=== PATIENT | female | born 2000 | race Caucasian/White ===

== ENCOUNTER 2024-03-10 17:13 | Outpatient (CLI) | payer OTHER, SELFPAY | END 2024-03-10 17:14 | disposition home or self-care (01) | LOC: ANHLAB 17:14 | PROVIDERS: Visit Provider Student in an Organized Health Care Education/Training Program | DX: Z20.2 Contact with and (suspected) exposure to infections with a predominantly sexual mode of transmission (principal) | CPT/HCPCS: 36415; 86695; 86696 ==

== ENCOUNTER 2024-10-05 09:52 | Outpatient (CLI) | payer BC, SELFPAY ==
--- OUTSIDE RECORDS SUMMARY | 2024-10-05 10:45 | XMS_ITS | Encounter Summary ---
Author Organization [facility] Address [address] [place] [address] Care Team Providers Care Foreign Languages Professor Name Role Phone Felisa Lugo MD Primary Care Provider [phone] Reason for Visit * Reason Onset Date Comments Returned Call 05/28/2018 Encounter Details Date Type Department Care Team (Late st Contact Info) Description 05/28/2018 Telephone [facility] [address] [place] [address] Chantelle Larose MD [address] [place] [address] Returned Call Social History Tobacco Use Types Packs/Day Years Used Date Smoking Tobacco: Never Smokeless Tobacco: Never Alcohol Use Standard Drinks/Week Comments Yes 0 (1 standard drink = 0.6 oz pur e alcohol) prior to Comments No Sex and Gender Information Value Date Recorded Sex Assigned at Not on file Legal Sex Female 10:07 AM CDT Gender Identity Not on file Sexual Orientation Not on file documented as of this encounter Functional Status * Is person deaf or have serious hearing difficulty? Answer Date of Assessment Author No 03/31/2018 12:37 PM NAIFT Shakir Linder RN * Is person blind or have serious difficulty seeing? Answer Date of Assessment Author No 03/31/2018 12:37 PM NAIFT Shakir Linder RN * Does person have serious difficulty walking/climbing stairs? Answer Date of Assessment Author No 03/31/2018 12:37 PM CDT Shakir Linder RN * Does person have difficulty dressing/bathing? Answer Date of Assessment Author No 03/31/2018 12:37 PM CDT Shakir Linder RN * Does person have difficulty doing errands alone? Answer Date of Assessment Author No 03/31/2018 12:37 PM NAIFT Shakir Linder RN documented as of this encounter Mental Status * Does person have difficulty concentrating/remembering/making decisions? Answer Entry Date Author No 03/31/2018 12:37 PM CDT Shakir Linder RN documented in this encounter Miscellaneous Notes * Telephone Encounter - Jaclyn Concepcion - 05/28/2018 1:07 PM CST Rtc to pt, scheduled for Mirena insertion on 05/30/[address] Larose. HOUSE LABORER * Telephone Encounter - Elham Morillo - 05/28/2018 12:07 PM CST Pt was returning a call back from Jaclyn. Pt number [phone] HOUSE LABORER documented in this encounter Plan of Treatment Not on file documented as of this encounter Visit Diagnoses Not on filedocumented in this encounter Care Teams Foreign Languages Professor Relationship Specialty Start Date End Date Felisa Lugo MD PCP - General Pediatrics 01/02/18 documented as of this encounter
--- OUTSIDE RECORDS SUMMARY | 2024-10-05 10:45 | XMS_ITS | Clinical Summary ---
Author Organization [facility] Address [facility] [place] [address] Care Team Providers Care Buyer Grain Name Role Phone None, Provider MD Primary Care Provider Unavaila ble Allergies No known active allergies Social History Tobacco Use Types Packs/Day Years Used Date Smoking Tobacco: Never Passive Smoke Exposure: Never Smokeless Tobacco: Never Tobacco Cessation:Counseling Given: Not Answered Alcohol Use Standard Drinks/Week Comments Yes 0 (1 standard drink = 0.6 oz pur e alcohol) social Comments No Sex and Gender Information Value Date Recorded Sex Assigned at Not on file Legal Sex Female 8:35 AM SPRINKLER TENDER Gender Identity Not on file Sexual Orientation Not on file Last Filed Vital Signs Vital Sign Reading Time Taken Comments Blood Pressure 107/73 05/20/2023 8:41 AM SPRINKLER TENDER Pulse 95 05/20/2023 8:41 AM SPRINKLER TENDER Temperature 37.4 C (99.3 F) 05/20/2023 8:41 AM SPRINKLER TENDER Respiratory Rate 16 05/20/2023 8:41 AM SPRINKLER TENDER Oxygen Saturation 100% 05/20/2023 8:41 AM SPRINKLER TENDER Inhaled Oxygen Concentration - - Weight 56.7 kg (125 lb) 05/20/2023 8:41 AM SPRINKLER TENDER Height 160 cm (5' 3 ) 05/20/2023 8:41 AM SPRINKLER TENDER Body Mass Index 22.14 05/20/2023 8:41 AM SPRINKLER TENDER Plan of Treatment Health Maintenance Due Date Last Done Comments Cervical Cancer Screening Pap Smear (Age 21 to 29) Every 3 Years 1999 Cervical Cancer Screening 1999 Annual Physical 2002 HPV Vaccines (3 - 2-dose series) 07/08/2013 03/09/2013, 01/05/2013 Hepatitis C 2017 Hepatitis B Vaccines (1 of 3 - 19+ 3-dose series) 2018 COVID-19 Vaccine (1 - 2024-25 season) 2024 DTaP, Tdap and Td Vaccines (5 - Td or Tdap) 01/28/2028 01/27/2018, 02/06/2010, 10/01/2007, Additional history exists Meningococcal Vaccine Completed 2016 , 02/06/2010, 11/19/2008 Meningococcal B Vaccine Aged Out No l onger eligible based on patient's age to complete this topic Pneumococcal Vaccine: Pediatrics (0 to 5 Years) and At-Risk Patients (6 to 49 Years) Aged Out No longer eligible based on patient's age to complete this topic RSV Immunizations Under 20 Months Aged Out No longer eligible based on patient's age to complete this topic Insurance [employer] [address] [address] [address] Care Teams Buyer Grain Relationship Specialty Start Date End Date None, Provider, PCP - General UNKNOWN PHYSICIAN SPECIALTY 05/20/23
--- OUTSIDE RECORDS SUMMARY | 2024-10-05 10:45 | XMS_ITS | Clinical Summary ---
Author Organization [facility] Address [address] [place] [address] Care Team Providers Care Office Professionals Name Role Phone Felisa Lugo MD Primary Care Provider Source Comments [facility],non-owned Affiliates and Associated Physician Practices is amultiple site organization consisting of ambulatory clinics and hospital sitesin [place], [place], [place] and [place]. This disclosure is being madepursuant to the Care Everywhere program and may not contain all information available regarding this patient. Last updated 18.[facility] Allergies No known active allergies Medications * Be aware that medications may not be up to date on this document. Alwaysverify current medications with the patient. acetaminophen (TYLENOL) 500 MG tablet Take 500 mg by mouth every 4 hours as needed for Headache Maximum allowable Acetaminophen amount = 4 Grams (4000 mg) / 24 hours. Active levonorgestrel (MIRENA, 52 MG,) 20 MCG/24HR IUD 1 device by Intrauterine route as directed Active FLUoxetine (PROZAC) 20 MG capsuleIndicati ons:Depression, unspecified depression type Take 1 capsule by mouth once daily 30 capsule 3 9 Active Active Problems Problem Noted Date Diagnosed Date Adjustment disorder with mixed emotional feature s 04/01/2018 Polyhydramnios, antepartum complication 03/20/20 18 Supervision of high risk in third trim delfina 01/01/2018 Overview (02/13/2018): PNL wnl Dating - 11 wk scan Anatomy: ventriculomegaly noted Genetics: FISH wnl 28 wk labs - wnl, s/p Tdap Needs GBS at 36 weeks Delivery planning: will base on FCC recommendations/BPD and HC around time of delivery, may need c/s if severe hydrocephalus growth evaluation at 38 weeks Neurosurg does not recommend early delivery Depression affecting 01/01/2018 Overview (01/27/2018): Prozac 10 mg - started @ primary OB Depression screen - initial 12/12/17 12/12/2017 Overview (03/25/2018): 12/12/2017 Brigette Mauro was screened for depression using the Sterling Depression Scale (EPDS) at her [facility] initial evaluation on 12/12/2017. Her initial score at baseline was 11. Based off of her score of 11, Brigette does not warrant follow up call . Patient will continue to be screened throughout , at intervals no closer than two weeks, for continued surveillance and early identification of depression until delivery. Patient reports mental health history. Diagnoses include anxiety and depression. Based off her hx, Brigette was provided with a packet for further assistance including information on both the MOMs line and MOMs support group, 24-hr crisis services, and additional resources for further guidance and support. 01/02/18 EPDS follow up score- 9 02/03/18 EPDS follow up score- 8 03/13/18 EPDS follow up score- 14 03/13/18 SW aware of increased score and resources were given to patient- she is aware that SW will also follow up with her one time before delivery. 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 PENITENTIARY PATIENT--PLEASE CALL [phone] IF TRIAGED OR ADMITTED Care Provider: Hallie (OB) w/ DAVID to [facility] 01/01 [facility] consultants involved: Nurse coordinator- Hal, [facility]- Desi, hr shared services consultant- Corry, [facility] [place] 01/02/18, Neonatology- [facility] 02/03 Diagnosis: Severe Bilateral Ventriculomegaly (4.0 on right, 4.3cm on left) follow up (Neurosurgery - [facility] 01/02) : It was explained to mother that following the delivery baby will be stabilized and transferred to [facility] for evaluation by the neurosurgical service. Silk Brusher: Planned surveillance: Initial PENITENTIARY evaluation 12/12 for ultrasound and amnio, and consults. Delivery location, mode, and GA: [facility], 10.02.08 Autopsy indicated: Genetics note: Amniocentesis 12/12- CLASSIFICATION OFFICER normal male, toxo and CMV negative Pump House Operator Concerns: 12/12/17- Patient with mental health history- depression and anxiety- does take Prozac Care plan based on evaluation and is subject to change based on assessment. See Images or Cardiac under Chart Review for US/ ECHO/ MRI reports. complicated by fet al cerebral ventriculomegaly 03/24/2018 33 weeks gestation of 02/27/2018 Immunizations Immunization Administration Dates Next Due TDAP (7yrs+) 01/27/2018 Family History Medical History Relation Name Comments Hypertension Father CVA Maternal Grandmother Hypertension Maternal Grandmother Relation Name Status Comments Father Maternal Grandmother Social History Tobacco Use Types Packs/Day Years [...] Sign Reading Time Taken Comments Blood Pressure 112/78 04/10/2019 2:16 PM CDT Pulse 81 05/22/2018 11:22 AM FISHER SEAL Temperature 36.8 C (98.2 F) 04/03/2018 7:50 AM CDT Respiratory Rate 16 05/22/2018 11:22 AM FISHER SEAL Oxygen Saturation 99% 04/03/2018 7:50 AM CDT Inhaled Oxygen Concentration - - Weight 58.1 kg (128 lb) 04/10/2019 2:16 PM CDT Height 160 cm (5' 3 ) 04/10/2019 2:16 PM CDT Body Mass Index 22.67 04/10/2019 2:16 PM CDT Plan of Treatment Health Maintenance Due Date Last Done Comments PAP SMEAR 1999 HPV VACCINE (1 - 3-dose series) 2014 HEPATITIS C SCREENING 01/28/2017 HEPATITIS B VACCINE (1 of 3 - 19+ 3-dose series) 2018 CHLAMYDIA/GONORRHEA SCREENING 01/01/2019 01/01/2018 COVID-19 VACCINE (1 - 2023-2 5 season) 2024 DEPRESSION SCREENING 06/24/2024 INFLUENZA VACCINE (Season Ended) 2025 DTAP/TDAP/TD VACCINES (2 - T d or Tdap) 01/28/2028 01/27/2018 ZOSTER VACCINE (1 of 2) 2049 HIV SCREENING Completed 01/01/2018 HIB VACCINE Aged Out No longer eligi ble based on patient's age to complete this topic MENINGOCOCCAL (Group B) VACC INE SHARED DECISION-MAKING Aged Out No longer eligibl e based on patient's age to complete this topic MENINGOCOCCAL GROUPS A/C/Y/W VACCINE Aged Out No longer eligible b ased on patient's age to complete this topic PNEUMOCOCCAL VACCINE Aged Out No long er eligible based on patient's age to complete this topic Procedures Procedure Name Priority Date/Time Associated Diagnosis Comments HIV-1 HIV-2 ANTIBODY + HIV P24 AG PANEL Routine 01/01/2018 2:35 PM CDT complicated by cerebral ventriculomegaly, single gestation CHLAMYDIA + GC AMPLIFIED PROBE Routine 01/01/2018 2:23 PM CDT complicated by cerebral ventriculomegaly, single gestation from Last 3 Months or Most Recently Relevant to Health Maintenance Results * HIV-1 HIV-2 ANTIBODY + HIV P24 AG PANEL (01/01/2018 2:35 PM CDT) Pathologist [facility] HIV1/2 Ab + P24 Ag Non Reactive Non Reactive 01/01/2018 11:14 PM CDT [facility] Blood BLOOD SPECIMEN / Unknown Venipuncture / Unknown 01/01/2018 2:35 PM CDT 01/01/2018 2:44 PM CDT Narrative [facility] - 01/01/2018 11:14 PM CDT No Laboratory evidence of HIV infection. Devora Francois MD LAB - CHEMISTRY ORDER BRIDGER Final Result [facility] [address] [place] [address] * CHLAMYDIA + GC AMPLIFIED PROBE (01/01/2018 2:23 PM CDT) [facility] Chlamydia Amplified Probe Negative Negative 01/02/2018 10:24 AM CDT [facility] GC Amplified Probe Negative Negative 01/02/2018 10:24 AM CDT [facility] Microbiology URINE / Unknown Collection / Unknown 01/01/2018 2:23 PM CDT 01/01/2018 3:01 PM CDT Narrative [facility] - 01/02/2018 10:24 AM CDT Results based on detection/no detection of ribosomal RNA by amplified method. Devora Francois MD LAB - MICROBIOLOGY OR DERABLES Final Result [facility] [address] [place] [address], [facility] [phone] from Last 3 Months or Most Recently Relevant to Health Maintenance Insurance [facility] Advance Directives * Full Code (Latest Code Status on File) Date Activated Date Inactivated Comments 03/31/2018 12:36 PM 04/03/2018 1:14 PM Care Teams Office Professionals Relationship Specialty Start Date End Date Felisa Lugo MD PCP - General Pediatrics 01/02/18
[2024-10-05 18:55] LABS: Basophils Percent Auto 0.6 % (0.2-1.2); Eosinophils Absolute Auto 0.4 K/mm3 (0-0.3); Eosinophils Percent Auto 8.5 % (0-4.4); Hematocrit 41.2 % (37.0-47.0); Hemoglobin 13.2 g/dL (12.0-15.0); Immature Granulocyte Absolute 0.01 K/mm3 (0.00-0.031); Immature Granulocyte Percent A 0.2 % (0-0.5); Lymphocytes Absolute Auto 1.82 K/mm3 (0.9-3.2); Mean Corpuscular Hemoglobin 29.6 pg (26-34); Mean Corpuscular Volume 92.4 fl (80-100); Mean Platelet Volume 8.8 fl (7.4-10.4); Monocytes Absolute Auto 0.5 K/mm3 (0.1-0.6); Monocytes Percent Auto 9.6 % (2.6-8.5); Neutrophils Absolute Auto 2.2 K/mm3 (1.3-6.7); Neutrophils Percent Auto 44.1 % (45.5-73.1); Platelet Count Result 327 k/mm3 (150-375); Red Blood Count 4.46 M/mm3 (4.2-5.4); Red Cell Distribution Width 12.6 % (11.5-14.5); White Blood Count 4.9 K/mm3 (4.5-10.0)
[2024-10-05 20:30] LABS: Alanine Aminotransferase 59 U/L (6-35); Albumin Level 4.5 g/dL (3.5-5.1); Alkaline Phosphatase 54 U/L (38-126); Anion Gap 8 mmol/L (4-12); Aspartate Amino Transferase 74 U/L (14-36); Bilirubin,Total 0.4 mg/dL (0.2-1.3); Blood Urea Nitrogen 9 mg/dL (7-17); Calcium 9.1 mg/dL (8.4-10.2); Carbon Dioxide 25 mmol/L (22-30); Chloride 107 mmol/L (98-107); Cholesterol 150 mg/dL (0-200); Estimated Glomerular Filt Rate > 60; Glucose 92 mg/dL (65-110); HDL Direct 52 mg/dL; Potassium 4.3 mmol/L (3.4-5.0); Sodium 140 mmol/L (137-145); Triglycerides 55 mg/dL (<150)
[2024-10-05 20:42] LABS: LDL Cholesterol Direct 76 mg/dL
[2024-10-05 21:36] LABS: Hemoglobin A1C 4.8 % (<5.7)
[2024-10-08 15:19] LABS: Immunoglobulin A 210 mg/dL (47-310); TTG IGA AB <1.0 U/mL
== END 2024-10-05 09:53 | disposition home or self-care (01) ==
LOC: ANHGOSHLAB 09:53
PROVIDERS: PCP Nurse Practitioner Family; Visit Provider Nurse Practitioner Family
DX: R35.0 Frequency of micturition (principal); R51.9 Headache, unspecified; R10.9 Unspecified abdominal pain; G47.00 Insomnia, unspecified; F41.9 Anxiety disorder, unspecified; R73.01 Impaired fasting glucose; B37.31 Acute candidiasis of vulva and vagina
CPT/HCPCS: 36415; 80053; 80061; 82784; 83036; 83516; 84443; 85025; 87086

== ENCOUNTER 2024-10-27 11:19 | Outpatient (CLI) | payer BC, SELFPAY ==
--- NOTE | ~2024-10-27 | US_ITS ---
Pelvic ultrasound. Clinical History: Other noninflammatory disorder vagina Technique: Realtime transabdominal and transvaginal scanning of the pelvis was performed. Color flow Doppler and Doppler spectral analysis were performed. Findings: The uterus is anteverted. The endometrial stripe has a thickness of 5 mm. IUD in satisfact ory position. No focal mass is identified. The right ovary measures 2.9 x 2.1 x 1.9 cm. No significant right ovarian or adnexal mass is seen. The left ovary measures 1.4 x 1.0 x 1.8 cm. No significant left ovarian or adnexal mass is seen. There is no evidence of free fluid in the cul de sac. Impression: IUD in place. No other significant findings. Reviewed, dictated and finalized at [facility]. Impression: IUD in place. No other significant findings.
--- OUTSIDE RECORDS SUMMARY | 2024-10-27 12:12 | XMS_ITS | Clinical Summary ---
Author Organization [facility] Address [address] [facility] [place] [address] Care Team Providers Care Director Network Development Name Role Phone Felisa Lugo MD Primary Care Provider [phone] Source Comments [facility],non-owned Affiliates and Associated Physician Practices is amultiple site organization consisting of ambulatory clinics and hospital sitesin [place], [place], [place] and [place]. This disclosure is being madepursuant to the Care Everywhere program and may not contain all information available regarding this patient. Last updated 18.[facility] Allergies No known active allergies Medications * [...] Mauro was screened for depression using the [place] Depression Scale (EPDS) at her [facility] initial evaluation on 12/12/2017. 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 SKILL[facility] NURSING PATIENT--PLEASE CALL [phone] IF TRIAGED OR ADMITTED Care Provider: Hallie (OB) w/ DAVID to [facility] 01/01 [facility] consultants involved: Nurse coordinator- Hal, [employer]- Desi, information services manager- Corry, [facility] 01/02/18, Neonatology- [facility] 02/03 Diagnosis: Severe Bilateral Ventriculomegaly (4.0 on right, 4.3cm on left) follow up (Neurosurgery - [facility] 01/02) : It was explained to mother that following the delivery baby will be stabilized and transferred to [facility] for evaluation by the neurosurgical service. Agent Contract Clerk: Planned surveillance: Initial [facility] NURSING evaluation 12/12 for ultrasound and amnio, and consults. Delivery location, mode, and GA: [facility], 10.02.08 Autopsy indicated: Genetics note: Amniocentesis 12/12- MEAT COUNTER WORKER normal male, toxo and CMV negative Dog Behaviorist Concerns: 12/12/17- Patient with mental health history- [...] PM CDT Pulse 81 05/22/2018 11:22 AM STATISTICAL ASSISTANT Temperature 36.8 C (98.2 F) 04/03/2018 7:50 AM CDT Respiratory Rate 16 05/22/2018 11:22 AM STATISTICAL ASSISTANT Oxygen Saturation 99% 04/03/2018 7:50 AM CDT Inhaled Oxygen Concentration - - Weight 58.1 kg (128 lb) 04/10/2019 2:16 PM CDT Height 160 cm (5' 3 ) 04/10/2019 2:16 PM CDT Body Mass Index 22.67 04/10/2019 2:16 PM CDT Plan of Treatment Health Maintenance Due Date Last Done Comments HPV VACCINE (1 - 3-dose series) 2014 [...] AG PANEL (01/01/2018 2:35 PM CDT) Pathologist [facility] HIV1/2 Ab + P24 Ag Non Reactive Non Reactive 01/01/2018 11:14 PM CDT [facility] Blood BLOOD SPECIMEN / Unknown Venipuncture / Unknown 01/01/2018 2:35 PM CDT 01/01/2018 2:44 PM CDT Narrative [facility] - 01/01/2018 11:14 PM CDT No Laboratory evidence of HIV infection. Devora Francois MD LAB - CHEMISTRY ORDER BRIDGER Final Result [facility] [place] [address] * CHLAMYDIA + GC AMPLIFIED PROBE (01/01/2018 2:23 PM CDT) Pathologist [facility] Chlamydia Amplified Probe Negative Negative 01/02/2018 10:24 AM CDT [facility] GC Amplified Probe Negative Negative 01/02/2018 10:24 AM CDT [facility] Microbiology URINE / Unknown Collection / Unknown 01/01/2018 2:23 PM CDT 01/01/2018 3:01 PM CDT Narrative [facility] - 01/02/2018 10:24 AM CDT Results based on detection/no detection of ribosomal RNA by amplified method. Devora Francois MD LAB - MICROBIOLOGY OR DERABLES Final Result [facility] [address] [place] [address], [facility] [place] [phone] from Last 3 Months or Most Recently Relevant to Health Maintenance Insurance [facility] Advance Directives * Full Code (Latest Code Status on File) Date Activated Date Inactivated Comments 03/31/2018 12:36 PM 04/03/2018 1:14 PM Care Teams Director Network Development Relationship Specialty Start Date End Date Felisa Lugo MD PCP - General Pediatrics 01/02/18
--- OUTSIDE RECORDS SUMMARY | 2024-10-27 12:13 | XMS_ITS | Data Portability ---
Author Organization [facility], Main Office Address [address] [place] [address] Assessment No assessment recorded. Plan of Treatment Reminders Order Date Submit Date Provider Last Modified By Organization Details Last Modified Time Details Appointments None record ed. Lab None record ed. Referral None record ed. Procedures None record ed. Surgeries None record ed. Imaging None record ed. Medication Orders None record ed. Patient TargetsNo targets recorded. Patient InstructionsNo instructions recorded. Reason for Referral None Reported. Results Created Date Observation Date Name Description Value Unit Range Abnormal Flag Note LastModifiedBy Organization Detail LastModifiedTime 09/14/1909/15/2020 pap, LB + CT/NG , refle x HR HPV if ASC-U + refle x HPV (16+1 8) chlamydia, nuc. acid amp negati ve negati ve Not Available [facility] [address], [address], 09/16/2020 12:10:38 09/14/19 21 09/15/2020 pap, LB + CT/NG , refle x HR HPV if ASC-U + refle x HPV (16+1 8) gonococcus, nuc. acid amp negati ve negati ve Not Available [facility] [address] [place] [place], [address], 09/16/2020 12:10:38 09/14/19 21 09/15/2020 pap, LB + CT/NG , refle x HR HPV if ASC-U + refle x HPV (16+1 8) trich vag by STANLEY negati ve negati ve Not Available [facility] [address], [address], 09/16/2020 12:10:38 09/14/19 21 09/16/2020 pap, LB + CT/NG , refle x HR HPV if ASC-U + refle x HPV (16+1 8) diagnosis: allen mckinnon NEGAT LOVE FOR INTRA EPITH ELIAL LESIO N OR RONY SHERMAN . THIS SPECI MEN WAS RESCR EENED PART OF OUR QUALI TY CONTR OL PROGR AM. Not Available [facility] [address] [facility] [place], [address], 09/16/2020 12:10:38 09/14/19 21 09/16/2020 pap, LB + CT/NG , refle x HR HPV if ASC-U + refle x HPV (16+1 8) specimen adequacy: allen mckinnon Satis facto ry for evalu ation . Endoc ervic al and/o r squam ous metap lasti c cells (endo cervi shashi compo nent) are prese nt. Not Available [facility] [address] [facility] [place], [address], 09/16/2020 12:10:38 09/14/19 21 09/16/2020 pap, LB + CT/NG , refle x HR HPV if ASC-U + refle x HPV (16+1 8) clinician provided ICD10: allen mckinnon Z01.4 19 Z11.3 Not Available [facility] [address], [place], [address], 09/16/2020 12:10:38 09/14/19 21 09/16/2020 pap, LB + CT/NG , refle x HR HPV if ASC-U + refle x HPV (16+1 8) performed by: allen moreno, Cytot vicki newsome t (ASCP ) Not Available [facility] [address] [place], [address], 09/16/2020 12:10:38 09/14/19 21 09/16/2020 pap, LB + CT/NG , refle x HR HPV if ASC-U + refle x HPV (16+1 8) QC reviewed by: commen t Drema Bonar , Super visor y Cytot echno logis t (ASCP ) Not Available [facility] [address] [facility] [place], [address], 09/16/2020 12:10:38 09/14/19 21 09/16/2020 pap, LB + CT/NG , refle x HR HPV if ASC-U + refle x HPV (16+1 8) . . Not Available [facility] [address] [facility] [place], [address], 09/16/2020 12:10:38 09/14/19 21 09/16/2020 pap, LB + CT/NG , refle x HR HPV if ASC-U + refle x HPV (16+1 8) note: commen t The Pap smear is a scree denver test desig prosper to aid in the detec tion of freida ligna nt and malig nant condi tions of the uteri ne cervi x. It is not a diagn ostic proce dure and shoul d not be used as the sole means of detec ting cervi shashi cance r. Both false -posi tive and false -nega tive repor ts do occur . Not Available [facility] [address] [facility] [place], [address], 09/16/2020 12:10:38 09/14/19 21 09/16/2020 pap, LB + CT/NG , refle x HR HPV if ASC-U + refle x HPV (16+1 8) test methodology: commen t This liqui d based ThinP rep(R ) pap test was scree prosper with the use of an image guide d syste m. Not Available [facility] [address] [place], [address], 09/16/2020 12:10:38 09/14/19 21 09/16/2020 pap, LB + CT/NG , refle x HR HPV if ASC-U + refle x HPV (16+1 8) . commen t The HPV DNA refle x crite polo were not met with this speci men resul t there fore, no HPV testi ng was perfo rmed. Not Available [facility] [address], [place], [address], 09/16/2020 12:10:38 Result Notes None recorded. Problems Name Problem SNOMED Code Status Onset Date Resolution Date Notes Provider Name and Address Organization Details Recorded Time 70937609 Completed 201701/27/2018 Not Available [facility] 19:45:41 Problem Notes None recorded. Procedures Surgical History Date Name Laterality Status Provider Name and Address Organization Details Recorded Time 8 CREW CHIEF Procedure completed Not Available [facility] 2022 19:45:15 8 section completed Not Available [facility] 08/22/2022 19:45:15 ENT Surgery completed Not Available [facility] 08/22/2022 19:45:15 Imaging Results None recorded. Procedure Notes None recorded. Medical Equipment None Reported. Medications Name Sig Start Date Stop Date Status Note LastModified by Organization Details LastModified Time Mirena 21 mcg/24 hr (up to 8 years) 52 mg intrauterin e device active Not Available Not Available Not Available citalopram 40 mg tablet TK 1 T PO QD UTD 09/13 completed Not Available Not Available Not Available fluoxetine 10 mg tablet Take 1 tablet every day by oral route. 09/13 completed Not Available Not Available Not Available oxycodone-a cetaminophe n 5 mg-325 mg tablet TK 1 TO 2 TS PO Q 6 H PRN P 09/13 completed Not Available Not Available Not Available amoxicillin 875 mg tablet 09/13 completed Not Available Not Available Not Available citalopram 20 mg tablet TK 1 T PO QD UTD 09/13 completed Not Available Not Available Not Available DOK 100 mg capsule TK 1 C PO BID 09/13 completed Not Available Not Available Not Available fluoxetine 10 mg capsule TK 1 C PO QD 09/13 completed Not Available Not Available Not Available hydroxyzine HCl 25 mg tablet TK 1 T PO TID PRN 09/13 completed Not Available Not Available Not Available ibuprofen 600 mg tablet TK 1 T PO Q 6 H PRN P 09/13 completed Not Available Not Available Not Available hydroxyzine HCl 10 mg tablet TK 1 T PO TID PRN 09/13 completed Not Available Not Available Not Available fluoxetine 20 mg capsule TK 2 CS PO D 09/13 completed Not Available Not Available Not Available nitrofurant oin monohydrate /macrocryst als 100 mg capsule TK 1 C PO Q 12 H FOR 5 DAYS PRN 09/13 completed Not Available Not Available Not Available Fluzone Quad 2018-(PF) 60 mcg(15 mcgx4)/0.5 mL intramuscul ar syringe TO BE ADMINISTE RED BY Spring[employer] T FOR IMMUNIZAT ION active Not Available Not Available No t Available Vitals Date Recorded Body height Body temperature Systolic blood pressure Diastolic blood pressure Provider Name and Address Organization Details Last Updated DateTime 09/13/2020 160.02 cm 97.6 [degF] 116 mm[Hg] 62 mm[Hg] Not Available [facility] 19:45:18 Social History Question Answer Notes LastModified by [employer] Details LastModified Time Tobacco Smoking Status Never Smoker Not Available [facility] 08/22/2022 19:45:09 What Is Your Level Of Alcohol Consumption? None [id number] Information not available 08/22/2022 What Is Your Level Of Caffeine Consumption? Moderate [id number] Information not available 08/22/2022 In The 14 Days Before Symptom Onset, Have You Had Close Contact With A Laboratory-confir med COVID-19 While That Case Was Ill? No [id number] Information not available 08/22/2022 In The 14 Days Before Symptom Onset, Have You Had Close Contact With A Person Who Is Under Investigation For COVID-19 While That Person Was Ill? No [id number] Information not available 08/22/2022 Which Illicit Or Recreational Drugs Have You Used? None [id number] Information not available 08/22/2022 Do You Or Have You Ever Used E-cigarettes Or Vape? Never Used Electronic Cigarettes [id number] Information not available 08/22/2022 Sex: Unknown Functional Status Question Answer Note LastModified by Organizat ion Details LastModified Time What is your exercise level? None [id number] Information not available 08/22/2022 Mental Status None recorded. Family History Relationship Description Onset Age of this Age Resolved Age Notes LastModified by Organization Details LastModified Time Father Harmful pattern of use of alcohol [id number] Not available 08/22/2022 19:45:15 Medical History Condition Response DEPRESSION (INCLUDING POST ) Y ANXIETY DISORDER Y Gynecological History Statement/Question Response Abnormal Pap N Date of Last Pap Smear Current Control Method IUD Age at Menarche 12 Date of LMP Obstetrics History GPAL:G 1 P 1 0 0 1 Type Value Full Term 1 Living 1 Total 1 Past Encounters Encounter ID Performer Location Encounter Start Date Encounter Closed Date Diagnosis/Indication Diagnosis SNOMED-CT Code Diagnosis ICD10 Code Diagnosis Note [id number] [facility]_M IGR[facility]_ DEFAULT_1 _1 , 09/13/2020 00:00:00 09/13/2020 17:32:08 Health Concerns Section Related Observation LastModified by Organization Detai ls LastModified Time None Recorded Concern Status LastModified by Organization Details LastModified Time None Recorded Advance Directives Directive None Recorded Payers None recorded. OBGyn Episode No OBEpisode recorded.
--- OUTSIDE RECORDS SUMMARY | 2024-10-27 12:13 | XMS_ITS | Encounter Summary ---
Author Organization [facility] Address [address] [facility] [place] [address] Care Team Providers Care Community Health Program Coordinator Name Role Phone Felisa Lugo MD Primary Care Provider [phone] Reason for Visit * Reason Onset Date Comments Returned Call 05/28/2018 Encounter Details Date Type Department Care Team (Late st Contact Info) Description 05/28/2018 Telephone [facility] [address] [place] [address] Chantelle Larose MD [address] [place] [address] Returned Call Social History Tobacco [...] Mirena insertion on 05/30/[address] Larose. N RESOURCE ASSISTANT * Telephone Encounter - Elham Morillo - 05/28/2018 12:07 PM CST Pt was returning a call back from Jaclyn. Pt number [phone] N RESOURCE ASSISTANT documented in this encounter Plan of Treatment Not on file documented as of this encounter Visit Diagnoses Not on filedocumented in this encounter Care Teams Community Health Program Coordinator Relationship Specialty Start Date End Date Felisa Lugo MD PCP - General Pediatrics 01/02/18 documented as of this encounter
--- OUTSIDE RECORDS SUMMARY | 2024-10-27 12:13 | XMS_ITS | Clinical Summary ---
Author Organization [facility] Address [facility] [place] [address] Care Team Providers Care Link Trainer Name Role Phone None, Provider MD Primary [...] on file Legal Sex Female 8:35 AM ACCOUNTING SYSTEMS MANAGER Gender Identity Not on file Sexual Orientation Not on file Last Filed Vital Signs Vital Sign Reading Time Taken Comments Blood Pressure 107/73 05/20/2023 8:41 AM ACCOUNTING SYSTEMS MANAGER Pulse 95 05/20/2023 8:41 AM ACCOUNTING SYSTEMS MANAGER Temperature 37.4 C (99.3 F) 05/20/2023 8:41 AM ACCOUNTING SYSTEMS MANAGER Respiratory Rate 16 05/20/2023 8:41 AM ACCOUNTING SYSTEMS MANAGER Oxygen Saturation 100% 05/20/2023 8:41 AM ACCOUNTING SYSTEMS MANAGER Inhaled Oxygen Concentration - - Weight 56.7 kg (125 lb) 05/20/2023 8:41 AM ACCOUNTING SYSTEMS MANAGER Height 160 cm (5' 3 ) 05/20/2023 8:41 AM ACCOUNTING SYSTEMS MANAGER Body Mass Index 22.14 05/20/2023 8:41 AM ACCOUNTING SYSTEMS MANAGER Plan of Treatment Health Maintenance Due Date [...] this topic Insurance [employer] [address] [address] [address] [address] Care Teams Link Trainer Relationship Specialty Start Date End Date None, Provider, PCP - General UNKNOWN PHYSICIAN SPECIALTY 05/20/23
== END 2024-10-27 11:20 | disposition home or self-care (01) ==
PROVIDERS: PCP Nurse Practitioner Family; Visit Provider Nurse Practitioner Family
DX: N89.8 Other specified noninflammatory disorders of vagina (principal); R10.9 Unspecified abdominal pain; Z97.5 Presence of (intrauterine) contraceptive device
CPT/HCPCS: 76830; 76856